=== PATIENT | female | born 1965 | race Caucasian/White ===

== ENCOUNTER → 2017-12-02 | Outpatient (CLI) | payer BC ==
--- NOTE | 2017-12-04 10:12 | MM ---
Reason for exam: screening (asymptomatic). Last mammogram was performed 2 years and 6 months ago. History: Patient is postmenopausal and is nulliparous. Family history of breast cancer in aunt, breast cancer in cousin, and premenopausal breast cancer in sister at age 54. Physical Findings: A clinical breast exam by your physician is recommended on an annual basis and results should be correlated with mammographic findings. MG 3D Screening Mammo W/Cad Bilateral CC and MLO view(s) were taken. Prior study comparison: June 10, 2015, bilateral MG 3d screening mammo w/cad. September 22, 2013, right breast MG work up mamm w CAD RT. There are scattered fibroglandular densities. No significant changes when compared with prior studies. ASSESSMENT: Negative, BI-RAD 1 RECOMMENDATION: Routine screening mammogram of both breasts in 1 year.
== END | disposition home or self-care (01) ==
LOC: RADMAMWWP 16:43
PROVIDERS: ATTEND Family Medicine
DX: Z12.31 Encounter for screening mammogram for malignant neoplasm of breast (principal)
CPT/HCPCS: 77063; 77067

== ENCOUNTER → 2018-05-06 | Outpatient (CLI) | payer BC ==
[2018-05-06 15:58] LABS: Basophils % (A) 1 %; Eosinophils # (A) 0.1 k/uL (0-0.7); Eosinophils % (A) 1 %; HCT 37.2 % (34.0-46.0); HGB 11.9 gm/dL (11.4-16.0); Lymphocytes # (A) 1.6 k/uL (1.0-4.8); Lymphocytes % (A) 24 %; MCH 26.8 pg (25.0-35.0); MCV 83.9 fL (80.0-100.0); Mean Platelet Volume 7.2; Monocytes # (A) 0.4 k/uL (0-1.0); Monocytes % (A) 6 %; Neutrophils # (A) 4.3 k/uL (1.3-7.7); Neutrophils % (A) 66 %; Platelet Count 277 k/uL (150-450); RBC 4.44 m/uL (3.80-5.40); RDW 14.1 % (11.5-15.5); WBC 6.5 k/uL (3.8-10.6)
[2018-05-06 23:09] LABS: Parathyroid Hormone Intact 80.9 pg/mL (14.0-72.0)
[2018-05-06 23:11] LABS: Iron Saturation 10.95 (12.00-45.00); Rheumatoid Factor 9 IU/mL (0-15)
[2018-05-06 23:15] LABS: Albumin 4.1 g/dL (3.80-4.90); Albumin/Globulin Ratio 1.86 (1.20-2.10); Anion Gap 6.7 mmol/L (4.00-12.00); Calcium 9.4 mg/dL (8.7-10.3); Carbon Dioxide 27.3 mmol/L (21.6-31.8); Globulin 2.2 g/dL (1.6-3.3); Magnesium 1.9 mg/dL (1.5-2.4); Phosphorus 4.2 mg/dL (2.4-5.1); Potassium 4.4 mmol/L (3.5-5.5); Total Bilirubin 0.2 mg/dL (0.3-1.2); Total Protein 6.3 g/dL (6.2-8.2)
[2018-05-06 23:22] LABS: Vitamin D 25 Hydroxy 27.2 ng/mL (30.0-100.0)
[2018-05-06 23:46] LABS: Hemoglobin A1C 5.9 % (4.0-6.0)
[2018-05-06 23:53] LABS: DNA Double-Stranded NEGATIVE (NEGATIVE); Gliadin AB IgA, Unit <0.2 U/mL
[2018-05-07 09:46] LABS: Immunoglobulin A 92.3 mg/dL (60.0-350.0)
== END ==
LOC: LABWHC1 15:08
PROVIDERS: ATTEND Nurse Practitioner Adult Health
DX: J45.40 Moderate persistent asthma, uncomplicated (principal); K21.9 Gastro-esophageal reflux disease without esophagitis; R53.83 Other fatigue; R11.0 Nausea; R63.5 Abnormal weight gain; Z84.89 Family history of other specified conditions; Z98.84 Bariatric surgery status
CPT/HCPCS: 36415; 80053; 82306; 82607; 82784; 83036; 83516; 83540; 83550; 83735; 83970; 84100; 84443; 85025; 86038; 86225; 86235; 86431

== ENCOUNTER → 2018-05-13 | Outpatient (CLI) | payer BC ==
--- NOTE | 2018-05-14 10:46 | ECHOF ---
Referral Reason:R63.5 Abnormal weight gain MEASUREMENTS -------- HEIGHT: 167.6 cm WEIGHT: 127.0 kg BP: 141/67 RVIDd: 3.3 cm (< 3.3) IVSd: 1.1 cm (0.6 - 1.1) LVIDd: 4.4 cm (3.9 - 5.3) LVPWd: 1.0 cm (0.6 - 1.1) IVSs: 1.8 cm LVIDs: 3.3 cm LVPWs: 1.6 cm LAESV Index (A-L): 20.42 ml/m Ao Diam: 3.4 cm (2.0 - 3.7) AV Cusp: 2.5 cm (1.5 - 2.6) MV EXCURSION: 17.354 mm (> 18.000) MV EF SLOPE: 113 mm/s (70 - 150) EPSS: 0.4 cm MV E Nikita: 0.73 m/s MV DecT: 290 ms MV A Nikita: 0.65 m/s MV E/A Ratio: 1.12 RAP: 5.00 mmHg RVSP: 20.18 mmHg FINDINGS -------- Sinus rhythm. This was a technically adequate study. The left ventricular size is normal. Left ventricular wall thickness is normal. Overall left vent ricular systolic function is normal with, an EF between 60 - 65 %. The right ventricle is mildly enlarged. Normal LA size by volume 22+/-6 ml/m2. The right atrium is normal in size. The aortic valve is trileaflet and appears structurally normal. The mitral valve is normal. Mild tricuspid regurgitation present. Right ventricular systolic pressure is normal at < 35 mmHg. Trace/mild (physiologic) pulmonic regurgitation. The aortic root size is normal. Normal inferior vena cava with normal inspiratory collapse consistent with estimated right atrial pre ssure of 5 mmHg. The inferior vena cava is mildly dilated. There is no pericardial effusion. CONCLUSIONS -------- 1. Sinus rhythm. 2. This was a technically adequate study. 3. The left ventricular size is normal. 4. Left ventricular wall thickness is normal. 5. Overall left ventricular systolic function is normal with, an EF between 60 - 65 %. 6. The right ventricle is mildly enlarged. 7. Normal LA size by volume 22+/-6 ml/m2. 8. The right atrium is normal in size. 9. The aortic valve is trileaflet and appears structurally normal. 10. The mitral valve is normal. 11. Mild tricuspid regurgitation present. 12. Right ventricular systolic pressure is normal at < 35 mmHg. 13. Trace/mild (physiologic) pulmonic regurgitation. 14. The aortic root size is normal. 15. Normal inferior vena cava with normal inspiratory collapse consistent with estimated right atrial pressure of 5 mmHg. 16. The inferior vena cava is mildly dilated. 17. There is no pericardial effusion. MANAGER POOL: Destiny Bell RDCS
== END | disposition home or self-care (01) ==
LOC: RADECHMAIN 15:39
PROVIDERS: ATTEND Internal Medicine
DX: I07.1 Rheumatic tricuspid insufficiency (principal); I37.1 Nonrheumatic pulmonary valve insufficiency; R63.5 Abnormal weight gain
CPT/HCPCS: 93306

== ENCOUNTER → 2018-07-08 | Outpatient (CLI) | payer BC ==
--- NOTE | 2018-07-09 09:27 | CT ---
EXAMINATION TYPE: CT abdomen pelvis w con DATE OF EXAM: 07/08/2018 COMPARISON: 05/05/2010 INDICATION: Right upper quadrant abdominal pain. DLP: 2413.6 mGycm, Automated exposure control for dose reduction was used. CONTRAST: 100ml mL of Isovue 300. Study performed with Oral Contrast TECHNIQUE: Axial images were obtained from above the diaphragm to the pubic rami in the axial plane a t 5 mm thick sections. Reconstructed images are reviewed on the computer in the coronal plane. FINDINGS: Limited CT sections are obtained the lung bases. The lung bases are clear. Mild coronary artery jayme cification is noted. CT ABDOMEN: Liver: Normal Spleen: Normal Pancreas: Normal Adrenal glands: The adrenal glands are normal. Gallbladder: Surgically absent. No abnormal fluid collections are evident. Kidneys: No masses are evident. No hydronephrosis is present. No cysts are present. Delayed images were obtained through the kidneys, which remain unremarkable. Aorta: Normal . Some minimal calcification is within the proximal common iliac arteries. Inferior vena cava: A filter is within the inferior vena cava below the level of the renal veins. CT PELVIS: Anterior abdominal wall surgical clips are present. No abnormal collections are identified . No hernia is identified. Loops of bowel within the abdomen and pelvis are normal. There are loops of bowel which are incom pletely distended or lack oral contrast limiting their evaluation. Appendix: Air-filled and Normal as visualized. Urinary bladder: Normal. Genitourinary structures: Uterus is absent. Adnexal regions appear within normal limits. A cyst in th e left adnexal region may be present measuring 1.8 cm and 12 Hounsfield units. Series 3 image 86. Cor relate with history. This could be a cyst on the remnant of ovarian tissue. Ultrasound could be perfo rmed for better evaluation. Osseous structures: No suspicious lytic or sclerotic lesions. IMPRESSIONS: 1. Suspected cyst within the left adnexal region. This could be further evaluated with pelvic ultras ound. 2. Post surgical changes. No suspicious acute changes to account for right upper quadrant pain.
== END ==
LOC: RADCTMAIN 16:03
PROVIDERS: ATTEND Surgery
DX: R10.31 Right lower quadrant pain (principal); Z98.890 Other specified postprocedural states
CPT/HCPCS: 74177; Q9967

== ENCOUNTER → 2019-05-13 | Outpatient (CLI) | payer BC ==
--- NOTE | 2019-05-13 11:05 | XR ---
Right ankle HISTORY: Heel pain, pain in right ankle 3 views of the right ankle There is lucency present at the medial ankle mortise suggesting probable remote osteochondral injury. Alignment and joint space are maintained. There is a plantar Marilyn spur. Enthesophyte present at t he insertion of Achilles tendon, there is associated calcification and possible Achilles tendon thick ening. Osteoarthritic change present at the intertarsal joints. No evident fracture or dislocation. IMPRESSION: Ankle MRI may be of benefit to assess for possible Achilles tendinitis, osteochondral inj ury along the ankle mortise. Plantar calcaneus spur.
== END | disposition home or self-care (01) ==
LOC: RADXRMAIN 10:16
PROVIDERS: ATTEND Internal Medicine
DX: M77.31 Calcaneal spur, right foot (principal)

== ENCOUNTER → 2020-06-07 | Outpatient (CLI) | payer BC ==
--- NOTE | 2020-06-09 11:46 | MM ---
Reason for exam: screening (asymptomatic). Last mammogram was performed 2 years and 6 months ago. History: Patient is postmenopausal and is nulliparous. Family history of breast cancer in aunt, breast cancer in cousin, and premenopausal breast cancer in sister at age 54. Physical Findings: A clinical breast exam by your physician is recommended on an annual basis and results should be correlated with mammographic findings. MG 3D Screening Mammo W/Cad Bilateral CC, MLO, and XCCL view(s) were taken. Prior study comparison: December 02, 2017, bilateral MG 3d screening mammo w/cad. June 10, 2015, bilateral MG 3d screening mammo w/cad. There are scattered fibroglandular densities. There is chronic nodularity bilaterally, likely intramammary lymph nodes. No significant changes when compared with prior studies. ASSESSMENT: Benign, BI-RAD 2 RECOMMENDATION: Routine screening mammogram of both breasts in 1 year.
== END ==
LOC: RADMAMWWP 08:43
PROVIDERS: ATTEND Family Medicine
DX: Z12.31 Encounter for screening mammogram for malignant neoplasm of breast (principal); Z78.0 Asymptomatic menopausal state; Z80.3 Family history of malignant neoplasm of breast
CPT/HCPCS: 77063; 77067

== ENCOUNTER → 2021-10-02 | Outpatient (CLI) | payer BC ==
[~2021-10-02] MED LIST: REGADENOSON 0.4 MG/5 ML SYRINGE IV PRN
--- NOTE | 2021-10-02 11:38 | NM ---
EXAMINATION TYPE: NM stress lexiscan cardiolite DATE OF EXAM: 10/02/2021 COMPARISON: NONE HISTORY: dyspnea TECHNIQUE: After the intravenous administration of 10.7 mCi Tc 99m Sestamibi - Cardiolite resting SP ECT images acquired 45 minutes post injection. The patient received 0.4mg Lexiscan, 25.8 mCi Tc 99m Sestamibi - Stress images obtained [address] injection FINDINGS: Review of stress and rest SPECT images demonstrates small apical septal and anterior area reversibili ty. Gated analysis shows normal wall motion with an estimated left ventricular ejection fraction of 58 %. Report called to referring clinician at 11:35 AM 10/02/2021. IMPRESSION: Findings are consistent with a small area of stress-induced reversible ischemia involving the anterio r, and apical septal portion of the myocardium.
--- NOTE | 2021-10-02 14:51 | EST ---
EXERCISE STRESS INDICATION: [id number]. AGE: 55 SEX: F HT: 5'6" WT: 290 lbs. PROTOCOL: Lexiscan Cardiolite STAGE: DURATION OF EXERCISE: HEART RATE REST: 67 BLOOD PRESSURE REST: 130/86 MAXIMUM HEART RATE ACHIEVED: 97 MAXIMUM BLOOD PRESSURE: 133/84 85% MPHR: 142 100% MPHR: 167 METS: RESULTS: Baseline EKG shows sinus rhythm, normal axis, normal intervals. Patient was given intravenous Lexiscan as per protocol. Did not have chest pain or diagnostic ST-segment depression. CONCLUSIONS: Negative stress test by EKG criteria. Cardiolite portion of the stress test will be reported separately. MMODL / IJN: [id number] /
== END | disposition home or self-care (01) ==
LOC: RADNMMAIN 08:02
PROVIDERS: ATTEND Internal Medicine
DX: R06.00 Dyspnea, unspecified (principal)
CPT/HCPCS: 93017; 78452; A9500; J2785

== ENCOUNTER → 2021-10-04 | Outpatient (CLI) | payer BC ==
[2021-10-04 11:09] LABS: % Iron Saturation 7.54 (12.00-45.00); ALT 15 U/L (8-44); AST 13 U/L (13-35); African American GFR (CKD) 97.6 (60.0-200.0); Alkaline Phosphatase 89 U/L (41-126); BUN/Creat Ratio 16.13 Ratio (12.00-20.00); Blood Urea Nitrogen 12.9 mg/dL (9.0-27.0); Calcium 9.1 mg/dL (8.7-10.3); Carbon Dioxide 25.5 mmol/L (20.0-27.5); Chloride 106 mmol/L (96-109); Chol/HDL Ratio 2.71 Ratio; Globulin 2.5 g/dL (1.6-3.3); Glucose 117 mg/dL (70-110); Iron 36 ug/dL (50-170); LDL Cholesterol,Calculated 94.4 mg/dL (0.0-131.0); Magnesium 2.3 mg/dL (1.5-2.4); Non-African American GFR(CKD) 84.2 (60.0-200.0); Phosphorus 4.2 mg/dL (2.4-5.1); Potassium 4.4 mmol/L (3.5-5.5); Sodium 141 mmol/L (135-145); Total Iron Binding Capacity 483 ug/dL (228-460); Total Protein 6.5 g/dL (6.2-8.2)
[2021-10-04 14:58] LABS: MCH 21.3 pg (27.0-32.0); MCHC 28.6 g/dL (32.0-37.0); MCV 74.6 fL (80.0-97.0); Mean Platelet Volume 10.5 fL (9.5-12.2); NRBC Per 100 WBC 0 /100 WBCS (0.0-0.0); Platelet Count 407 X 10*3/uL (140-440); RBC 4.69 X 10*6/uL (4.10-5.20); RDW 18.5 % (11.5-14.5); WBC 5.56 X 10*3/uL (4.50-10.00)
[2021-10-04 15:45] LABS: Basophils # (A) 0.05 X 10*3/uL (0.00-0.10); Basophils % (A) 0.9 %; Eosinophils % (A) 1.8 %; Immature Grans, Automated 0.2 %; Lymphocytes # (A) 1.64 X 10*3/uL (0.90-5.00); Lymphocytes % (A) 29.5 %; Monocytes # (A) 0.48 X 10*3/uL (0.20-1.00); Monocytes % (A) 8.6 %; Neutrophils # (A) 3.28 X 10*3/uL (1.80-7.70)
[2021-10-04 15:46] LABS: RBC Morphology NORMAL
== END | disposition home or self-care (01) ==
LOC: LABWHC1 07:05
PROVIDERS: ATTEND Internal Medicine
DX: R06.00 Dyspnea, unspecified (principal)
CPT/HCPCS: 36415; 80053; 80061; 82306; 82607; 82746; 83036; 83540; 83550; 83735; 84100; 84443; 85025

== ENCOUNTER → 2021-10-17 | Outpatient (CLI) | payer BC ==
--- NOTE | 2021-10-18 07:56 | MM ---
Reason for Exam: Screening (asymptomatic). Last mammogram was performed 1 year(s) and 4 month(s) ago. Patient History: Menarche at age 14. Patient has no children. Hysterectomy at age 44. Postmenopausal. Estrogen and Progesterone for 6 months. Maternal cousin had breast cancer. Maternal aunt had breast cancer. Sister had breast cancer, age 54. Risk Values: Lorin 5 year model risk: 2.2%. NCI Lifetime model risk: 15.8%. Prior Study Comparison: 06/10/2015 Bilateral Screening Mammogram, [facility]. 12/02/2017 Bilateral Screening Mammogram, [facility]. 06/07/2020 Bilateral Screening Mammogram, [facility]. Tissue Density: There are scattered fibroglandular densities. Findings: Analyzed By CAD. There is no suspicious group of microcalcifications or new suspicious mass in either breast. Overall Assessment: Negative, BI-RAD 1 Management: Screening Mammogram of both breasts in 1 year. A clinical breast exam by your physician is recommended on an annual basis and results should be correlated with mammographic findings. Electronically signed and approved by: Ruben Higuera M.D. Radiologis
--- NOTE | 2021-10-18 15:19 | BD ---
EXAMINATION TYPE: Axial Bone Density DATE OF EXAM: 10/17/2021 COMPARISON: NONE CLINICAL HISTORY: 56 years year old Female. ICD-10 CODE: Z13.820 SCREENING FOR OSTEOPOROSIS Z78.0 YMPTOMATIC MENOPA Height: 5 FT 6 IN Weight: 301 FRAX RISK QUESTIONS: Alcohol (3 or more units per day): NO Family History (Parent hip fracture): NO Glucocorticoids (More than 3mos): NO (Ex: prednisone, prednisolone, methylprednisolone, dexamethasone, and hydrocortisone). History of Fracture in Adulthood: YES Secondary Osteoporosis: 1. Type 1 Diabetes: NO 2. Hyperthyroidism: NO 3. Menopause before 45: NO 4. Malnutrition: NO 5. Chronic liver disease: NO Rheumatoid Arthritis: NO Current Tobacco Use: NO RISK FACTORS HISTORY OF: Surgery to Spine/Hip(right/left)/Wrist (right/left): NO Family History of Osteoporosis: NO Active: YES Diet low in dairy products/other sources of calcium: NO Postmenopausal woman: YES Take estrogen and/or progesterone medications: WAS ON PREMPRO FOR APPROX 6 MONTHS STOPPED THREE WEEKS AGO Lost more than 2 inches in height since high school: NO Frequent falls: NO Poor Health: POOR Hyperparathyroidism: NO Adrenal Insufficiency: NO MEDICATIONS: Additional Medications: CYMBALTA,LASIX, MULTI, VIT D , RON, ZYRTEC, XANAX NEEDED, FLEXER ALL, FLONASE, ADVAIR, EPI PEN, NORCO NEEDED Additional History: EXAM MEASUREMENTS: Bone mineral densitometry was performed using the Arkeo System. Bone mineral density as measured about the Lumbar spine is: ----- L1-L4(G/cm2): 1.242 T Score Values are as follows: ----- L1: 0.9 ----- L2: 0.6 ----- L3: 0.7 ----- L4: -0.2 ----- L1-L4: 0.5 BASELINE Bone mineral density about the R hip (g/cm2): 0.985 Bone mineral density about the L hip (g/cm2): 0.917 T Score values are as follows: -----R Neck: -0.4 -----L Neck: -0.9 -----R Total: 0.1 -----L Total: -0.4 BASELINE FRAX%s: The graph provided illustrates a 4.3 % chance for a major osteoporotic fx and a 0.2 % chance for the hips probability for fx in 10 years time. IMPRESSION: Normal (Values between +1 and -1 indicate normal bone mass). Consider repeating this study in 5 year s or sooner if there is some new clinical indication. NOTE: T-SCORE=SD OF THE YOUNG ADULT MEAN.
== END | disposition home or self-care (01) ==
LOC: RADMAMWWP 15:37
PROVIDERS: ATTEND Internal Medicine
DX: Z12.31 Encounter for screening mammogram for malignant neoplasm of breast (principal); Z13.820 Encounter for screening for osteoporosis; Z78.0 Asymptomatic menopausal state
CPT/HCPCS: 77063; 77067; 77080

== ENCOUNTER → 2022-03-02 | Outpatient (CLI) | payer OTHER ==
[2022-03-02 22:22] LABS: HCT 38.5 % (37.2-46.3); HGB 11.9 g/dL (12.0-15.0); MCH 26.2 pg (27.0-32.0); MCHC 30.9 g/dL (32.0-37.0); MCV 84.6 fL (80.0-97.0); Mean Platelet Volume 9.7 fL (9.5-12.2); NRBC Per 100 WBC 0 /100 WBCS (0.0-0.0); Platelet Count 342 X 10*3/uL (140-440); RBC 4.55 X 10*6/uL (4.10-5.20); RDW 15.4 % (11.5-14.5); WBC 7.68 X 10*3/uL (4.50-10.00)
[2022-03-02 23:46] LABS: African American GFR (CKD) 89.1 (60.0-200.0); Carbon Dioxide 24.3 mmol/L (20.0-27.5); Non-African American GFR(CKD) 76.9 (60.0-200.0); Potassium 4.8 mmol/L (3.5-5.5)
== END | disposition home or self-care (01) ==
LOC: LABWHC1 13:53
PROVIDERS: ATTEND Internal Medicine
DX: Z01.812 Encounter for preprocedural laboratory examination (principal); R07.9 Chest pain, unspecified
CPT/HCPCS: 36415; 80051; 82565; 84520; 85027

== ENCOUNTER 2022-03-06 06:40 | Day surgery (SDC) | payer BC, OTHER ==
[~2022-03-06 06:40] MED LIST changes: +ALPRAZolam 0.25 MG TAB PO PRN; +ALPRAZolam 0.5 MG TAB PO PRN; +ASPIRIN 325 MG TAB PO STA; +NITROGLYCERIN SL TABS 0.4 MG TAB SUBLINGUAL PRN; -REGADENOSON 0.4 MG/5 ML SYRINGE IV PRN; +SODIUM CHLORIDE 0.9% 1,000 ML in EMPTY BAG 1 BAG IV SCH
[2022-03-06] MEDS ORDERED: ASPIRIN 81 MG ONE (06:54)
[2022-03-06] MEDS ORDERED: SODIUM CHLORIDE 0.9% 1,000 ML IV ONE (07:08)
[2022-03-06 07:13] VITALS: RESP 16; TEMP 97.8
[2022-03-06] MEDS ORDERED: VERAPAMIL 2.5 MG/ML 2 ML AMP ONE (07:25)
[2022-03-06] MEDS ORDERED: HEPARIN SODIUM 1,000 UN/ML (10ML VL) ONE (07:25)
[2022-03-06] MEDS ORDERED: LIDOCAINE 1% INJ 10MG/ML (30 ML VIAL-PF) SQ ONE (07:44)
[2022-03-06] MEDS ORDERED: VERAPAMIL SYRINGE (5 MG/10 ML) INTRAARTER ONE (07:45)
[2022-03-06] MEDS ORDERED: HEPARIN SODIUM 1,000 UN/ML (10ML VL) IV ONE (07:49)
[2022-03-06] MEDS ORDERED: IOPAMIDOL-370 100ML BTL INJ ONE (07:56)
--- NOTE | 2022-03-06 08:01 | P.CARDCATH ---
Description of Procedure: PROCEDURES PERFORMED: Left heart catheterization, bilateral coronary angiography INDICATION: Abnormal stress test CONSENT:I have discussed the risks, benefits and alternative therapies for the above-mentioned procedure and for both sedation/analgesia as well as necessary blood product administration, if indicated, as they pertain to this patient. The patient has indicated understanding and acceptance of the risks and procedures discussed. PROCEDURE: After the risks, benefits and alternatives of the above mentioned procedure explained in detail with the patient, informed consent was obtained. Patient was taken to the catheterization lab and prepped and draped in usual fashion. 1% lidocaine was used to anesthetize the right radial artery. A 6- Ecuadorean sheath was placed in the right radial artery using modified Seldinger technique. Left coronary angiography was performed with a 5-Ecuadorean JL 3.5 catheter and right coronary angiography was performed with a 5-Ecuadorean JR5 catheter in various views. A 5-Ecuadorean FR5 catheter was inserted into the left ventricle and pressure measurements were obtained. The right radial sheath was removed and a TR band was placed with hemostasis achieved. The patient tolerated the procedure well. Patient was transported back to the post catheterization holding area in stable condition. Conscious Sedation: Patient was monitored under the direct supervision of vision of myself for conscious sedation using Versed and fentanyl for a total duration of 11 minutes HEMODYNAMICS: Aorta 141/81 LV: 145/4, LVEDP 14 SELECTIVE CORONARY ARTERIOGRAPHY: LEFT MAIN: The left main is a large caliber vessel which trifurcates into the LAD, ramus and circumflex. There is no significant stenosis. LEFT ANTERIOR DESCENDING CORONARY ARTERY: LAD is a large caliber vessel which is a dual LAD system. There is no significant stenosis. RAMUS: The ramus is moderate caliber with no stenosis LEFT CIRCUMFLEX CORONARY ARTERY: Left circumflex is a moderate caliber vessel without significant stenosis. RIGHT CORONARY ARTERY: The right coronary artery is a large caliber vessel which gives off a PDA and PLV branch and is the dominant vessel. There is no significant stenosis. FINAL IMPRESSION: 1. Normal coronary arteries as described above. 2. Normal left sided filling pressures PLAN: 1. Aggressive risk factor modification per most recent ACC/AHA guidelines. 2. Follow-up in the office in 1-2 weeks.
[2022-03-06 13:18] VITALS: BP 133/67; PULSE 69
== END 2022-03-06 12:07 | disposition home or self-care (01) ==
LOC: CATHCVL 06:40
PROVIDERS: ATTEND Internal Medicine
DX: R94.39 Abnormal result of other cardiovascular function study (principal); I51.89 Other ill-defined heart diseases; I73.9 Peripheral vascular disease, unspecified
CPT/HCPCS: 93458; C1769; C1894; J2001; J1644; Q9967

== ENCOUNTER 2022-04-10 09:41 | Day surgery (SDC) | payer OTHER ==
[~2022-04-10 09:41] MED LIST changes: -ALPRAZolam 0.25 MG TAB PO PRN; -ALPRAZolam 0.5 MG TAB PO PRN; -ASPIRIN 325 MG TAB PO STA; +LACTATED RINGERS 1,000 ML IV SCH; -NITROGLYCERIN SL TABS 0.4 MG TAB SUBLINGUAL PRN; -SODIUM CHLORIDE 0.9% 1,000 ML in EMPTY BAG 1 BAG IV SCH
[2022-04-10] MEDS ORDERED: LACTATED RINGERS 1,000 ML IV ONE (10:08)
[2022-04-10 10:13] VITALS: RESP 16; TEMP 97
[2022-04-10] MEDS ORDERED: ONDANSETRON 4 MG/2 ML VIAL ONE ×2 (10:30→11:23)
[2022-04-10] MEDS ORDERED: ONDANSETRON 4 MG/2 ML VIAL IVP ONE (10:34)
[2022-04-10] MEDS ORDERED: SCOPOLAMINE 1 MG/72 HR PATCH TRANSDERM ONE (10:35)
[2022-04-10] MEDS ORDERED: PROPOFOL 10 MG/ML 20 ML VIAL IV ONE (10:38)
--- NOTE | 2022-04-10 10:43 | P.GSHP ---
History of Present Illness H&P Date: 04/10/22 Chief Complaint: GI bleed, anemia 36-year-old female here today for upper and lower endoscopy. Patient with history of previous gastric bypass. Apparently did have previous gastric problems after her weight loss surgery. Required a feeding tube at one point she says. Recently with iron deficiency anemia and has noticed rectal bleeding and melena. 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 x2 Past Anesthesia/Blood Transfusion Reactions: Postoperative Nausea & Vomiting (PONV) Additional Past Anesthesia/Blood Transfusion Reaction / Comment(s): severe PONV, no hx. blood transfusion reaction Smoking Status: Never smoker Medications and Allergies Home Medications Medication Instructions Recorded Confirmed Type Cetirizine HCl [Zyrtec] 10 tab PO HS 10/17/21 04/10/22 History DULoxetine HCL [Cymbalta] 60 tab PO DAILY 10/17/21 04/10/22 History Fluticasone Nasal [place] [Flonase 1 spray INHALATION DAILY PRN 10/17/21 04/10/22 History Nasal [place]] ALPRAZolam [Xanax] 0.25 mg PO DAILY PRN 02/27/22 04/10/22 History Ascorbic Acid [Vitamin C] 500 mg PO DAILY 02/27/22 04/10/22 History Cyclobenzaprine [Flexeril] 10 mg PO HS PRN 02/27/22 04/10/22 History EPINEPHrine (Auto Inject) [Epipen] 0.3 mg IM ONCE PRN 02/27/22 04/10/22 History Ergocalciferol [Vitamin D2 (1250 1,250 mcg PO WEEKLY 02/27/22 04/10/22 History Mcg = 75192 Iu)] Fexofenadine/Pseudoephedrine 1 tab PO DAILY 02/27/22 04/10/22 History [Beulah-D 24 Hour Tablet] Fluticasone Propion/Salmeterol 1 inhalation PO BID PRN 02/27/22 04/10/22 History [Advair 250-50 Diskus] Furosemide [Lasix] 20 mg PO DAILY 02/27/22 04/10/22 History Multivitamins, Thera [Multivitamin 1 tab PO DAILY 02/27/22 04/10/22 History (formulary)] Rosuvastatin [Crestor] 10 mg PO HS 02/27/22 04/10/22 History Vitamin B Complex 1 each PO DAILY 02/27/22 04/10/22 History Allergies Allergy/AdvReac Type Severity Reaction Status Date / Time milk Allergy Anaphylaxis Verified 04/10/22 10:13 Penicillins Allergy Rash/Hives Verified 04/10/22 10:13 vancomycin Allergy Rash/Hives Verified 04/10/22 10:13 Egg Derived AdvReac Nausea & Verified 04/10/22 10:13 Vomiting Surgical - Exam Vital Signs Temp Pulse Resp BP Pulse Ox 97 F L 79 16 148/72 99 04/10/22 10:10 04/10/22 10:10 04/10/22 10:10 04/10/22 10:10 04/10/22 10:10 Physical exam: General: Well-developed, well-nourished HEENT: Normocephalic, sclerae nonicteric Abdomen: Nontender, nondistended Extremities: No edema Neuro: Alert and oriented Assessment and Plan (1) Rectal bleeding Narrative/Plan: Will proceed with upper and lower endoscopy Current Visit: Yes Status: Acute Code(s): K62.5 - HEMORRHAGE OF ANUS AND RECTUM SNOMED Code(s): 74682145
--- NOTE | 2022-04-10 11:05 | P.PCN ---
Date of Procedure: 04/10/22 Procedure(s) Performed: PREOPERATIVE DIAGNOSIS: Anemia, GI bleeding POSTOPERATIVE DIAGNOSIS: Small hiatal hernia, normal colon PROCEDURE: 1. EGD 2. Colonoscopy ANESTHESIA: MAC SURGEON: Christopher Rodriguez M.D. SPECIMENS: None ENDOSCOPIC PROCEDURE: The patient was on the endoscopy table in the left decubitus position. The Olympus gastroscope was inserted into the oropharynx and passed under direct visualization to the jejunum. Patient's gastrojejunostomy was widely patent without inflammatory changes. The stomach was free of inflammation. The patient had a small 1 cm hiatal hernia present. The esophagus was then carefully examined. There were no neoplastic inflammatory or polypoid lesions throughout the visualized esophagus. The patient was kept on the endoscopy table in the left decubitus position. The Olympus colonoscope was inserted into the anus and passed under direct visualization to the base of the cecum. The appendiceal orifice was visualized. From that point the scope was slowly withdrawn inspecting all surfaces carefully. There were no neoplastic inflammatory or polypoid lesions throughout the cecum, ascending, transverse, descending, sigmoid and rectum. There was no visible diverticulosis noted. Digital rectal examination was normal. The patient was taken to the recovery room in stable condition per anesthesia guidelines. RECOMMENDATIONS: Resume diet. Continue anemia workup. Disposition: same day
[2022-04-10] MEDS ORDERED: METOCLOPRAMIDE 5 MG/ML 2 ML VIAL ONE (11:28)
[2022-04-10] MEDS ORDERED: METOCLOPRAMIDE 5 MG/ML 2 ML VIAL IVP ONE (11:28)
[2022-04-10 11:31] VITALS: BP 121/92; PULSE 61
== END 2022-04-10 12:02 | disposition home or self-care (01) ==
LOC: ORWHC2ENDO 09:41
PROVIDERS: ATTEND Surgery
DX: D50.9 Iron deficiency anemia, unspecified (principal); K63.89 Other specified diseases of intestine; K44.9 Diaphragmatic hernia without obstruction or gangrene; E78.5 Hyperlipidemia, unspecified; I10 Essential (primary) hypertension; Z79.51 Long term (current) use of inhaled steroids; Z86.16 Personal history of COVID-19; Z86.711 Personal history of pulmonary embolism; Z86.718 Personal history of other venous thrombosis and embolism; Z88.0 Allergy status to penicillin; Z90.49 Acquired absence of other specified parts of digestive tract; Z98.84 Bariatric surgery status
CPT/HCPCS: 45378; 43235; J2765; J2405; J2704

== ENCOUNTER → 2022-11-06 | Outpatient (CLI) | payer OTHER ==
--- NOTE | 2022-11-07 08:42 | CT ---
EXAMINATION TYPE: CT chest wo con DATE OF EXAM: 11/06/2022 COMPARISON: HISTORY: dyspnea post covid x [address] DLP: 1731.0 mGycm. Automated Exposure Control for Dose Reduction was Utilized. TECHNIQUE: CT scan of the thorax is performed without IV contrast. FINDINGS: LUNGS: The lungs are grossly clear, there is no concerning parenchymal mass or nodule identified. T here is no pleural effusion or pneumothorax seen. The tracheobronchial tree is patent. Bilateral sub segmental areas of consolidation atelectasis. No diagnostic evidence of pulmonary fibrosis. Mild cent ral bronchiectasis. MEDIASTINUM: Lack of IV contrast is noted to limit evaluation for mediastinal and especially hilar ad enopathy. There are no definitive greater than 1 cm hilar or mediastinal lymph nodes. No cardiomega ly or pericardial effusion is seen. Mild coronary artery calcium dictation. OTHER: Hypertrophic degenerative changes spine. There is a hypodensity within the upper margin vena c elke possibly he will filter. Correlate clinically. This is only partially. Surgical changes anterior wall and stomach. Small hiatal hernia.. IMPRESSION: 1. No evidence of pulmonary fibrosis. There are scattered areas of subsegmental atelectasis or scarri ng bilaterally. 2. Mild central bronchiectasis.
== END | disposition home or self-care (01) ==
LOC: RADCTMAIN 18:32
PROVIDERS: ATTEND Internal Medicine Critical Care Medicine
DX: J47.9 Bronchiectasis, uncomplicated (principal); R06.09 Other forms of dyspnea; Z86.16 Personal history of COVID-19
CPT/HCPCS: 71250

== ENCOUNTER → 2022-12-25 | Outpatient (CLI) | payer OTHER ==
--- NOTE | 2022-12-26 18:40 | MM ---
Reason for Exam: Screening (asymptomatic). Last mammogram was performed 1 year(s) and 2 month(s) ago. Patient History: Menarche at age 14. Patient has no children. Hysterectomy at age 44. Postmenopausal. Estrogen and Progesterone for 6 months. Maternal cousin had breast cancer. Maternal aunt had breast cancer. Sister had breast cancer, age 54. Risk Values: Lorin 5 year model risk: 2.3%. NCI Lifetime model risk: 15.5%. Prior Study Comparison: 12/02/2017 Bilateral Screening Mammogram, [facility]. 06/07/2020 Bilateral Screening Mammogram, [facility]. 10/17/2021 Bilateral MG 3D screening mammo w/cad, [facility]. Tissue Density: There are scattered fibroglandular densities. Findings: Analyzed By CAD. There are symmetrical stable. No suspicious groups of microcalcifications, spiculated or lobular masses, architectural distortion or other secondary signs of malignancy are mammographically apparent. Overall Assessment: Negative, BI-RAD 1 Management: Screening Mammogram of both breasts in 1 year. A negative mammogram report should not preclude additional follow up of suspicious palpable abnormalities. Patient should continue monthly self breast exam. A clinical breast exam by your physician is recommended on an annual basis and results should be correlated with mammographic findings. Electronically signed and approved by: Erick Kothari D.O. Radiologis
== END | disposition home or self-care (01) ==
LOC: RADMAMWWP 16:12
PROVIDERS: ATTEND Internal Medicine
DX: Z12.31 Encounter for screening mammogram for malignant neoplasm of breast (principal); Z78.0 Asymptomatic menopausal state; Z80.3 Family history of malignant neoplasm of breast
CPT/HCPCS: 77063; 77067

== ENCOUNTER → 2023-10-11 | Outpatient (CLI) | payer BC ==
[2023-10-11 10:17] LABS: Basophils # (A) 0.05 X 10*3/uL (0.00-0.10); Eosinophils # (A) 0.08 X 10*3/uL (0.04-0.35); Eosinophils % (A) 1.6 %; HCT 40.9 % (37.2-46.3); HGB 12.8 g/dL (12.0-15.0); Lymphocytes # (A) 1.42 X 10*3/uL (0.90-5.00); Lymphocytes % (A) 27.6 %; MCH 29.4 pg (27.0-32.0); MCHC 31.3 g/dL (32.0-37.0); MCV 93.8 FL (80.0-97.0); Mean Platelet Volume 10.6 FL (9.5-12.2); Monocytes # (A) 0.42 X 10*3/uL (0.20-1.00); Monocytes % (A) 8.2 %; NRBC Per 100 WBC 0 X 10*3/uL (0.00-0.01); Neutrophils # (A) 3.17 X 10*3/uL (1.80-7.70); Neutrophils % (A) 61.4 %; Platelet Count 291 X 10*3/uL (140-440); RBC 4.36 X 10*6/uL (4.10-5.20); RDW 13.1 % (11.5-14.5); WBC 5.15 X 10*3/uL (4.50-10.00)
[2023-10-11 10:49] LABS: % Iron Saturation 22.28 (12.00-45.00); ALT 17 U/L (8-44); AST 14 U/L (13-35); Albumin 4.2 g/dL (3.8-4.9); Albumin/Globulin Ratio 1.91 Ratio (1.60-3.17); Alkaline Phosphatase 77 U/L (41-126); BUN/Creat Ratio 18.33 Ratio (12.00-20.00); Blood Urea Nitrogen 16.5 mg/dL (9.0-27.0); Calcium 9.1 mg/dL (8.7-10.3); Carbon Dioxide 25.8 mmol/L (21.6-31.8); Chloride 107 mmol/L (96-109); Ferritin 24.4 ng/mL (10.0-291.0); Globulin 2.2 g/dL (1.6-3.3); Glucose 102 mg/dL (70-110); Iron 82 UG/DL (50-170); LDL Cholesterol,Calculated 77.9 mg/dL (0.0-131.0); Magnesium 2.3 mg/dL (1.5-2.4); Potassium 3.9 mmol/L (3.5-5.5); Sodium 142 mmol/L (135-145); Total Bilirubin 0.3 mg/dL (0.3-1.2); Total Iron Binding Capacity 368 UG/DL (228-460); Total Protein 6.4 g/dL (6.2-8.2); VLDL Calculation 19.44 mg/dL (5.00-40.00)
== END | disposition home or self-care (01) ==
LOC: LABWHC1 07:09
PROVIDERS: ATTEND Internal Medicine
DX: Z00.00 Encounter for general adult medical examination without abnormal findings (principal); E61.1 Iron deficiency; E55.9 Vitamin D deficiency, unspecified; R73.03 Prediabetes
CPT/HCPCS: 36415; 80053; 80061; 82306; 82607; 82728; 82746; 83036; 83540; 83550; 83735; 84443; 85025

== ENCOUNTER → 2024-03-10 | Outpatient (CLI) | payer BC ==
[2024-03-10 11:49] LABS: ALT 14 U/L (8-44); AST 14 U/L (13-35); Albumin 4.2 g/dL (3.8-4.9); Albumin/Globulin Ratio 1.75 Ratio (1.60-3.17); Alkaline Phosphatase 90 U/L (41-126); Blood Urea Nitrogen 14.8 mg/dL (9.0-27.0); Calcium 9.4 mg/dL (8.7-10.3); Carbon Dioxide 26.3 mmol/L (21.6-31.8); Chloride 106 mmol/L (96-109); Chol/HDL Ratio 2.66 Ratio; Globulin 2.4 g/dL (1.6-3.3); Glucose 101 mg/dL (70-110); LDL Cholesterol,Calculated 84.5 mg/dL (0.0-131.0); Potassium 4.4 mmol/L (3.5-5.5); Sodium 142 mmol/L (135-145); Total Bilirubin 0.3 mg/dL (0.3-1.2); Total Protein 6.6 g/dL (6.2-8.2)
== END | disposition home or self-care (01) ==
LOC: LABWHC1 07:13
PROVIDERS: ATTEND Internal Medicine
DX: R73.03 Prediabetes (principal)
CPT/HCPCS: 36415; 80053; 80061; 83036

== ENCOUNTER → 2024-04-22 | Outpatient (CLI) | payer BC ==
--- NOTE | 2024-04-22 07:54 | MM ---
Reason for Exam: Screening (asymptomatic). Last mammogram was performed 1 year(s) and 4 month(s) ago. Patient History: Menarche at age 14. Patient has no children. Hysterectomy at age 44. Postmenopausal. Estrogen and Progesterone for 6 months. Maternal cousin had breast cancer. Maternal aunt had breast cancer. Sister had breast cancer, age 54. Risk Values: Lorin 5 year model risk: 2.4%. NCI Lifetime model risk: 15.2%. Prior Study Comparison: 06/07/2020 Bilateral Screening Mammogram, [facility]. 10/17/2021 Bilateral MG 3D screening mammo w/cad, [facility]. 12/25/2022 Bilateral MG 3D screening mammo w/cad, [facility]. Tissue Density: There are scattered areas of fibroglandular density. Analyzed By CAD. Overall Assessment: Benign, BI-RAD 2 Management: Screening Mammogram of both breasts in 1 year. Electronically signed and approved by: Roger Coronado M.D.
== END | disposition home or self-care (01) ==
LOC: RADMAMWWP 06:56
PROVIDERS: ATTEND Internal Medicine
DX: Z12.31 Encounter for screening mammogram for malignant neoplasm of breast (principal); Z78.0 Asymptomatic menopausal state; Z80.3 Family history of malignant neoplasm of breast; R92.323 Mammographic fibroglandular density, bilateral breasts
CPT/HCPCS: 77063; 77067

== ENCOUNTER → 2024-08-19 | Outpatient (CLI) | payer OTHER ==
--- NOTE | 2024-08-19 17:25 | CT ---
EXAMINATION TYPE: CT lumbar spine wo con DATE OF EXAM: 08/19/2024 4:41 PM COMPARISON: 07/08/2018. CLINICAL INDICATION: Female, 58 years old with history of S39.012A STRAIN OF MUSCLE, FASCIA AND TENDO N OF LO; PHH, abnormal lumbar xray, back pain, work injury TECHNIQUE: Multiple axial images were obtained from the midportion of T11 through the sacroiliac marcos nts. Soft tissue and bone windows in coronal and sagittal planes were obtained and reviewed. 3-D ref ormats of the bones were created on a separate workstation and submitted for review. Contrast used: mL of , (None, if empty). Oral contrast used: (None, if empty). CT DLP: 1700.2 mGycm, Automated exposure control for dose reduction was used. FINDINGS: Alignment: There are 5 lumbar type vertebral bodies within normal alignment. Bone: No evidence of fracture is identified. Multilevel degeneration changes with osteophyte formati on, disc space narrowing, facet joint arthropathy worse at L2-L3 and T11-T12. Facet joint arthropathy worse at L4 and L5.. Discs: T12-L1: No spinal canal or neural foraminal stenosis is identified. L1-L2: No spinal canal or neural foraminal stenosis is identified. L2-L3: No spinal canal or neural foraminal stenosis is identified. L3-L4: No spinal canal or neural foraminal stenosis is identified. L4-L5: No spinal canal or neural foraminal stenosis is identified. L5-S1: No spinal canal or neural foraminal stenosis is identified. Other: IVC filter present. Postsurgical changes of gastric lumen. IMPRESSION: 1. No evidence for spinal fracture. 2. Mild to moderate degeneration changes spine. No evidence for significant spinal canal or neural fo raminal stenosis. [facility], , 08/19/2024 5:22 PM
== END | disposition home or self-care (01) ==
LOC: RADCTMAIN 16:24
PROVIDERS: ATTEND Emergency Medicine
DX: S39.012A Strain of muscle, fascia and tendon of lower back, initial encounter (principal); M51.360 Other intervertebral disc degeneration, lumbar region with discogenic back pain only
CPT/HCPCS: 72131

== ENCOUNTER → 2024-08-19 | Outpatient (CLI) | payer OTHER ==
--- NOTE | 2024-08-19 15:10 | XR ---
EXAMINATION TYPE: XR lumbar spine 2 or 3V DATE OF EXAM: 08/19/2024 2:36 PM COMPARISON: None CLINICAL INDICATION: Female, 58 years old with history of S39.012A STRAIN OF MUSCLE, FASCIA AND TENDO N OF LO, pain TECHNIQUE: XR lumbar spine 2 or 3V - Frontal, lateral and coned in L5-S1 lateral views of the spine. FINDINGS: No evidence of any acute osseous pathology. Questionable compression deformity 25% height l oss of L3. There is normal alignment of the lumbar vertebral bodies. Scattered disc space narrowing. Multilevel marginal osteophyte formation throughout the visualized spine. There is facet joint arthropathy throu ghout the spine. Scattered at least mild neural foraminal stenosis. IVC filter present. Surgical clips present. IMPRESSION: 1. Questionable compression deformity to the L3 vertebral body. Further evaluation with CT recommende d. 2. Moderate multilevel disc degeneration. [facility], , 08/19/2024 3:08 PM
== END | disposition home or self-care (01) ==
LOC: RADXRMAIN 14:19
PROVIDERS: ATTEND Emergency Medicine
DX: S39.012A Strain of muscle, fascia and tendon of lower back, initial encounter (principal); M51.360 Other intervertebral disc degeneration, lumbar region with discogenic back pain only
CPT/HCPCS: 72100